=== PATIENT | male | born 1985 | race Caucasian/White ===

== ENCOUNTER → 2023-07-20 06:24 | Outpatient (REF) | payer BC, SELFPAY | LOC: MRI 06:24 | PROVIDERS: ATTENDING PHYSICIAN Physician Assistant Surgical; FAMILY PHYSICIAN Family Medicine | DX: M25.512 Pain in left shoulder (principal) | CPT/HCPCS: 73221 ==

== ENCOUNTER 2024-02-13 06:17 | Day surgery (SDC) | payer BC, SELFPAY ==
[2024-02-13] VITALS (10 sets, daily range): BP systolic 101–137; BP diastolic 54–78; BMI 34.9
[2024-02-13] MEDS: TYLENOL 1000 MG PO (07:12)
[2024-02-13] MEDS: CELEBREX 200 MG PO (07:12)
[2024-02-13] MEDS: DILAUDID 0.25 MG IV (10:19)
[2024-02-13] MEDS: ROXICODONE 5 MG PO (11:28)
== END 2024-02-13 11:55 | disposition home or self-care (01) ==
LOC: SDS 06:17
PROVIDERS: ATTENDING PHYSICIAN Orthopaedic Surgery
DX: M19.012 Primary osteoarthritis, left shoulder (principal); S46.212A Strain of muscle, fascia and tendon of other parts of biceps, left arm, initial encounter; S43.432A Superior glenoid labrum lesion of left shoulder, initial encounter; X58.XXXA Exposure to other specified factors, initial encounter
CPT/HCPCS: 29824

== ENCOUNTER → 2024-04-24 09:57 | Outpatient (REF) | payer BC, SELFPAY ==
[2024-04-24 11:09] LABS: Blood Urea Nitrogen 15 mg/dl (9-20); Calcium 9.1 mg/dl (8.4-10.2); Carbon Dioxide 28 mmol/L (22-30); Chloride 102 mmol/L (98-107); Glucose 100 mg/dl (70-99); HDL Cholesterol 51 mg/dl; LDL Cholesterol, Calculated 162 mg/dl; Potassium 4.3 mmol/L (3.5-5.1); Sodium 139 mmol/L (135-145); Total Cholesterol 261 mg/dl (50-199); Triglyceride 244 mg/dl (10-149); Very Low Density Lipoprotein 48 mg/dl (0-30); eGFR > 60.00
== END ==
LOC: REG 09:57
PROVIDERS: ATTENDING PHYSICIAN Family Medicine
DX: Z00.00 Encounter for general adult medical examination without abnormal findings (principal); E66.811 Obesity, class 1
CPT/HCPCS: 36415; 80048; 80061